=== PATIENT | male | born 1995 | race Asian ===

== ENCOUNTER 2022-06-19 07:29 | Outpatient (CLI) | payer OTHER ==
--- NOTE | 2022-06-21 08:28 | MRI Report ---
PROCEDURE: KNEE WO - RT INDICATIONS: KNEE PAIN TECHNIQUE: Noncontrast sagittal PD fast spin echo and T2 fast spin echo with fat saturation, sagittal 3-D gradie nt sequence with fat saturation; coronal T1 spin echo and PD fast spin echo with fat saturation, and axial PD fast spin echo with fat saturation through the knee. COMPARISON: None. FINDINGS: Image quality: Excellent. Menisci: There is detachment of the peripheral third of the posterior horn medial meniscus. Moderate T2 signal elevation at the posterior meniscal capsular junction of the posterior horn medial meniscus . Lateral meniscus is intact. Cruciate ligaments: The anterior and posterior cruciate ligaments appear intact. Medial structures: The medial collateral ligament appears intact. Visualized portions of the pes ans erinus tendons appear normal. No abnormal bursal fluid. Lateral structures: The lateral collateral ligament, long and short heads of the biceps femoris tend on appear intact. The popliteus tendon appears normal. Iliotibial band appears normal. Anterior structures: The quadriceps and patellar tendons appear intact. There is mild lateral patell ar subluxation. Lateral ventral trochlear prominence is present. Moderate edema within the superolate ral aspect of the infrapatellar fat pad. Bones and cartilage: No bone marrow contusions or fractures. There is moderate ill-defined T2 signal elevation within the lateral patellar facet as well as subchondral cyst formation. Moderate degree cartilage loss overlies the lateral patellar facet. Mild articular cartilage loss dif fusely overlies the weightbearing aspects of the medial femoral condyle and medial tibial plateau. Joint space: There is a small knee joint effusion. No Giemnez's cyst. Normal appearing synovial plica e are incidentally noted. IMPRESSION: 1. Meniscocapsular junction injury and partial detachment of the posterior horn medial meniscus. 2. Tricompartmental osteoarthritis with associated articular cartilage loss. Subchondral degenerative marrow edema within the patella. 3. Small knee joint effusion. 4. Findings consistent with lateral patellofemoral friction syndrome in the appropriate clinical sett ing. Reviewed by: May Goldberg MD on 06/21/2022 8:27 AM PDT Approved by: May Goldberg MD on 06/21/2022 8:27 AM PDT Station ID: [id number]
== END 2022-06-19 07:30 | disposition home or self-care (01) ==
LOC: DI 07:29
PROVIDERS: ATTEND Student in an Organized Health Care Education/Training Program
DX: S83.241A Other tear of medial meniscus, current injury, right knee, initial encounter (principal); M17.11 Unilateral primary osteoarthritis, right knee; M25.461 Effusion, right knee